=== PATIENT | female | born 1980 | race Caucasian/White ===

== ENCOUNTER 2023-05-15 00:54 | Day surgery (SDC) | payer BC, SELFPAY ==
[2023-05-11 09:52] VITALS: BMI 26.5
--- NOTE | 2023-05-11 09:55 | PC.NURSE ---
Addendum entered by Reba Pierre RN 05/12/23 14:07: PT STATES SHE ALREADY STOPPED OZEMPIC (LAST DOSE WAS 05/01). PT IS AWARE NOT TO TAKE ANOTHER DOSE UNTIL AFTER SURGERY. Original Note: Report to the Outpatient Waiting Room, entrance under the green pavilion located off [facility], at time 0600 on date 05/15/23. Planned Procedure Time: 0730. Time changes happen often and if your time is changed the preop area will call you the afternoon before. - You and your visitor will be asked to self-screen and do not enter if you have any COVID symptoms. - A mask is optional within the hospital at this time. Patients may have clear liquids (water, carbonated beverages, clear teas, apple juice) until 3 hours prior to surgery with a maximum of 20 ounces. - No food from midnight until time of surgery Take the following medications with a SIP of water the morning of surgery: FLUOXETINE DO NOT STOP ANY OF YOUR OTHER PRESCRIPTION MEDICATIONS PRIOR TO SURGERY ?EXCEPT THE FOLLOWING Medications to discontinue per physician: VITAMINS/SUPPLEMENTS Date to take last dose: 05/11/23 Please no make-up, nail yi, hairspray, perfume, deodorant, or body powder the day of surgery. No jewelry (including any body piercings) or valuables the day of surgery, leave them at home. Please take a shower or bath the night before, or the morning of, surgery with an antibacterial soap. Wear comfortable, loose fitting clothing. - Jewelry must be removed prior to entering the operating room. Rings and piercings that are not removed may be cut off. - The hospital will not accept responsibility for valuables. - Please leave all valuables, including medications, at home the day of surgery. If you are going home after surgery, a licensed helper/driver must drive you home. - NO public transportation without another adult if you receive anesthesia. - We recommend that an adult stay with you for 24 hours following discharge. - We also recommend that you do not drive, make important decision, drink alcoholic beverages, or take any drugs that were not prescribed by your health care provider for at least 24 hours after your discharge time. Follow any additional instructions given to you from your surgeon. If you or anyone in your household have experienced Covid symptoms in the past week, please notify your surgeon or the nurse liaison at the phone number below for possible testing. Telephone instructions given to PT - MARY FOOTE and asked if any additional questions and then verbalized understanding. Patient advised to call surgeon office or pre surgery nurse liaison [phone] if any additional questions.
--- NOTE | 2023-05-14 07:41 | PM.IMHP ---
H&P: HPI History of Present Illness Date/Time: 05/14/23 07:41 Chief Complaint: Stress incontinence Narrative: 43-year-old female with stress urinary incontinence. She desires surgical correction. Review of Systems Review of Systems: All systems reviewed & are unremarkable except as noted in HPI and below PMFSH Social History Social History Smoking status: Never smoker Alcohol intake: current Alcohol use details: RARE Substance use: never Substance use type: does not use Living arrangements: with family Spiritual care concerns: No Meds Home Medications and Allergies Home Medications Medication Instructions Recorded Confirmed Type Lactobacil.acidophilus-Bifido.animalis 1 cap PO DAILY 05/11/23 05/11/23 History 5 billion cell sprinkle capsule (Probiotic) fluoxetine 20 mg capsule 20 mg PO DAILY 05/11/23 05/11/23 History linaclotide 72 mcg capsule 72 mcg PO EVERY OTHER DAY 05/11/23 05/11/23 History (Linzess) montelukast 10 mg tablet 10 mg PO HS 05/11/23 05/11/23 History pantoprazole 40 mg tablet,delayed 40 mg PO BID 05/11/23 05/11/23 History release semaglutide 2 mg/dose (8 mg/3 mL) 2 mg subcut WEEKLY 05/11/23 05/11/23 History subcutaneous pen injector (Ozempic) Allergies Allergy/AdvReac Type Severity Reaction Status Date / Time Penicillins Allergy Hives Verified 05/11/23 09:49 Sulfa (Sulfonamide Allergy Hives Verified 05/11/23 09:49 Antibiotics) Exam Narrative: No acute distress normal breathing alert oriented x3 urethral mobility Assessment and Plan Assessment and plan (1) KATI (stress urinary incontinence, female): Code(s): N39.3 - Stress incontinence (female) (male) Status: Acute Assessment and Plan: urethral sling. Understands risks of bleeding, infection, damage to surrounding organs, damage to the urinary tract, vaginal mesh extrusion, urinary tract mesh erosion, obstructive voiding requiring secondary procedure, hip and leg pain, persistent or recurrent incontinence. She agrees to proceed
[2023-05-15] VITALS (7 sets, daily range): BP systolic 102–146; BP diastolic 63–98; PULSE 50–79; RESP 14–20; TEMP 36.1–36.3; O2SAT 98–100
[2023-05-15] MEDS: LACTATED RINGERS 1,000 ML 30 ML IV CONT ×2 (06:35→08:53)
--- NOTE | 2023-05-15 07:10 | WPDHPUPDATE1 ---
History and Physical Update Update Date/Time: 05/15/23 07:10 History and Physical has been reviewed, including an updated exam of the patient. There are NO changes in the patient's condition. Risks, benefits, and alternatives have been discussed and questions answered. Patient agrees to proceed with procedure.
[2023-05-15] MEDS: ceFAZolin 2 GM/D5W 50 ML 2 GM/50 ML BAG IVPB (07:29)
[2023-05-15] MEDS: BUPIVACAINE/EPINEPHRINE 0.5% 30 ML VIAL 10 ML INFILTRATE (07:45)
--- NOTE | 2023-05-15 07:58 | P.OP_ITS ---
Procedure Note - Detailed Date of Procedure 05/15/23 Pre-op Diagnosis stress incontinence Post-op Diagnosis Same Procedure Performed mid urethral sling cystoscopy Surgeon King Mendenhall MD Anesthesia General and Local Indications This is a female with confirm stress urinary incontinence. She desires surgical correction. She understands the risks of bleeding, infection, injury to the urinary tract, vaginal mesh extrusion, urinary tract mesh erosion, obstructive voiding requiring a secondary procedure, hip and leg pain, dyspareunia, inability to improve overactive bladder symptoms. She agrees to proceed. Description of Procedure She was correctly identified. Informed consent obtained. She was brought the operating room. She was given appropriate anesthesia. She was given appropriate perioperative antibiotics. A time-out performed. I marked out the site of the inner thigh incisions. I anesthetized the skin and made those incisions. I anesthetized the anterior vaginal wall over the mid urethra. I made a 1 cm incision. I dissected out laterally taking great care not to injure the refilled vaginal wall. I passed the helical trocars. First on the left. Then on the right. I did this from the thigh incision towards the vaginal i ncision. The sling was connected to the trocars and brought out through the thigh incision. I tensioned the sling appropriately. I cut and the plastic sheaths. I then closed the incision with 2 0 Vicryl. On cystoscopy there is no tumors or surgical artifact. There was no surgical artifact in the urethra. I cut the excess sling material. Close incisions with glue. She was awakened and transferred to the PACU in stable condition. Implants Urethral sling Estimated Blood Loss 10 Drains No Packing No Pathology None sent Complications No immediate complications Condition Stable Disposition PACU
[2023-05-15] MEDS: oxyCODONE HCL (*CRX) 5 MG TAB IR PO (09:11)
--- NOTE | 2023-06-24 12:59 | P.PNAN_ITS ---
Anes - Initial Pre Proc Eval Procedure: Operation Date: 05/15/23 07:30 Proposed Procedures p Urethral Sling - King Mendenhall MD Date/Time: 06/24/23 12:59 Surgeon: King Mendenhall MD Pre Op Diagnosis: stress incontinence Patient Data Age: 43 Gender: F Height: 1.6 m Weight: 71.1 kg Last Vital Signs Temp 36.1 C L 05/15/23 08:00 Pulse 54 L 05/15/23 09:20 Resp 20 05/15/23 08:45 BP 133/82 05/15/23 09:20 Pulse Ox 98 05/15/23 08:45 O2 Del Method Room Air 05/15/23 09:20 O2 Flow Rate 8 05/15/23 08:15 Allergies Allergy/AdvReac Type Severity Reaction Status Date / Time Penicillins Allergy Hives Verified 05/11/23 09:49 Sulfa (Sulfonamide Allergy Hives Verified 05/11/23 09:49 Antibiotics) Home Medications Medication Instructions Recorded Confirmed Type Lactobacil.acidophilus-Bifido.animalis 1 cap PO DAILY 05/11/23 05/11/23 History 5 billion cell sprinkle capsule (Probiotic) fluoxetine 20 mg capsule 20 mg PO DAILY 05/11/23 05/11/23 History linaclotide 72 mcg capsule 72 mcg PO EVERY OTHER DAY 05/11/23 05/11/23 History (Linzess) montelukast 10 mg tablet 10 mg PO HS 05/11/23 05/11/23 History pantoprazole 40 mg tablet,delayed 40 mg PO BID 05/11/23 05/11/23 History release semaglutide 2 mg/dose (8 mg/3 mL) 2 mg subcut WEEKLY 05/11/23 05/11/23 History subcutaneous pen injector (Ozempic) hydrocodone 5 mg-acetaminophen 325 1 tablet PO Q6H PRN pain #20 tabs 05/15/23 Rx mg tablet Patient hx anesthesia problems: none Family hx anesthesia problems: none Results Review: All pre-operative results and documents have been reviewed as part of the pre- operative evaluation. [facility] Social History Social History Smoking status: Never smoker Alcohol intake: current Alcohol use details: RARE Substance use: never Substance use type: does not use Living arrangements: with family Spiritual care concerns: No Anes - Eval Final PreProcedure Day of Procedure 06/24/23 12:59 Patient weight: overweight Anesthetic plan: proceed Anesthesia type and monitoring: general Results Review: All pre-operative results and documents have been reviewed as part of the pre-operative evaluation. Informed Consent: The patient's anesthetic plan and its attendant risks and benefits were discussed with the patient/family/POA. Questions were solicited and answers provided to the satisfaction of the patient/family/POA.
== END 2023-05-15 09:45 | disposition home or self-care (01) ==
PROVIDERS: Visit Provider Urology
PROC: (CPT 57288; principal; 2023-05-15 07:30)
DX: N39.3 Stress incontinence (female) (male) (principal); Z79.85 Long-term (current) use of injectable non-insulin antidiabetic drugs
CPT/HCPCS: 57288; A9270; C1771; J0690; J1100; J2250; J2405; J2704; J3010; J7030; J7120